=== PATIENT | female | born 1960 | race Caucasian/White ===

== ENCOUNTER → 2019-12-05 14:55 | Outpatient (CLI) | payer OTHER, MEDICAID, SELFPAY ==
--- NOTE | 2019-12-05 15:00 | DI.RAD.S_ITS ---
PROCEDURE: XR FOOT RT MIN 3V INDICATIONS: foot injury TECHNIQUE: 3 views of the foot were acquired. COMPARISON: None. FINDINGS: Bones: No fractures or dislocations. No suspicious bony lesions. Soft tissues: No tibiotalar joint effusion. Achilles tendon appears normal. IMPRESSION: Source of pain after trauma not found. Dictated by: Arnulfo Hoffmann M.D. on 12/05/2019 at 16:00 Approved by: Arnulfo Hoffmann M.D. on 12/05/2019 at 16:00
== END ==
PROVIDERS: PCP Physician Assistant; Referring Provider Physician Assistant; Visit Provider Physician Assistant
DX: S99.921A Unspecified injury of right foot, initial encounter (principal); X58.XXXA Exposure to other specified factors, initial encounter
CPT/HCPCS: 73630

== ENCOUNTER → 2020-07-07 12:37 | Outpatient (CLI) | payer OTHER, MEDICAID, SELFPAY ==
--- NOTE | 2020-07-07 12:40 | DI.RAD.S_ITS ---
PROCEDURE: XR HAND LT MIN 3V INDICATIONS: l hand pain. Third and 4th metacarpophalangeal joints tender to palpation. TECHNIQUE: 3 views of the hand(s) acquired. COMPARISON: None. FINDINGS: Bones: In this patient with this given history, scrutiny is given to the 3rd and 4th metacarpophalangeal joints. No abnormalities can be seen at these sites. No fractures or dislocations are seen elsewhere. Carpal bones are normally aligned. No suspicious bony lesions. Degenerative changes are seen throughout, which are most prominent involving the 1st carpometacarpal joint. Milder degenerative changes are seen elsewhere. Soft tissues: No suspicious soft tissue calcifications. IMPRESSION: Age-appropriate degenerative change, without a focal abnormality, including involving the 3rd and 4th metacarpophalangeal joints. Dictated by: Vipin Sosa M.D. on 07/07/2020 at 12:11 Approved by: Vipin Sosa M.D. on 07/07/2020 at 12:12
== END ==
PROVIDERS: PCP Physician Assistant; Referring Provider Physician Assistant; Visit Provider Physician Assistant
DX: M79.642 Pain in left hand (principal)
CPT/HCPCS: 73130